=== PATIENT | male | born 1960 | race African-American/Black ===

== ENCOUNTER 2016-09-27 07:38 | Emergency (ER) | payer SELFPAY ==
[2016-09-27] MEDS ORDERED: ALBUTEROL SULFATE 0.083% NEB 2.5 MG/3 ML AMPUL NEB ONE (08:23)
--- NOTE | 2016-09-27 09:00 | ER Document Report ---
HPI - HPI Patient complains to provider of: cough Pain Level: 1 Context: Patient is a 56-year-old male who presents emergency department complaining of cough for 1 week. Patient states that it is been nonproductive, denies any chest pain, dyspnea on exertion. Patient states that his past medical history significant for history of a left pneumothorax 1 that required chest tube placement. He denies having symptoms that were consistent with that. States that he is normally short of breath at baseline so that is not abnormal for him. Patient states he only notices his cough when he takes deep breath. Admits to hot flashes and chills at night. Denies any weight loss nausea, vomiting, abdominal pain, diarrhea or constipation. Denies any other URI symptoms. Denies any history of COPD, asthma Patient does not have a primary care provider Past medical history as above Past surgical history denies Social history significant for current tobacco user, daily alcohol (2-3 beers a day), social marijuana use - CARDIOVASCULAR Cardiovascular: DENIES: Chest pain - DERM Skin Color: Normal Past Medical History - Social History Smoking Status: Current Every Day Smoker Chew tobacco use (# tins/day): - 8 Frequency of alcohol use: Heavy Drug Abuse: Marijuana Family History: Other Patient has suicidal ideation: No Patient has homicidal ideation: No Renal/ Medical History: Denies: Hx Peritoneal Dialysis Surgical Hx: Negative Vertical Provider Document - CONSTITUTIONAL Agree With Documented VS: Yes Exam Limitations: No Limitations General Appearance: WD/WN, No Apparent Distress Notes: PHYSICAL EXAM GENERAL: Alert, interacts well. HEAD: Normocephalic, atraumatic. EYES: Pupils equal, round, and reactive to light. Extraocular movements intact. ENT: Oral mucosa moist, tongue midline. NECK: Full range of motion. Supple. Trachea midline. LUNGS: Clear to auscultation bilaterally, no wheezes, rales, or rhonchi. No respiratory distress. HEART: Regular rate and rhythm. No murmurs, gallops, or rubs. EXTREMITIES: Moves all 4 extremities spontaneously. No edema, radial and dorsalis pedis pulses 2/4 bilaterally. No cyanosis. NEUROLOGICAL: Alert and oriented x4. Normal speech. PSYCH: Normal affect, normal mood. SKIN: Warm, dry, normal turgor. No rashes or lesions noted. - INFECTION CONTROL TRAVEL OUTSIDE OF THE [place] IN LAST 30 DAYS: No Course - Re-evaluation Re-evalutation: 09/27/16 09:00 Patient is a 56-year-old male who is hemodynamically stable, no acute distress and afebrile. X-ray does not reveal any evidence of pneumonia is possible scarring in the right upper lobe. Discussed findings with patient and indications to follow-up with primary care for possible repeat imaging in the future.. Patient states that her cough feels better after 1 dose of nebulized albuterol. Will discharge patient home with inhaler and can follow-up with primary care. - Diagnostic Test Radiology reviewed: Image reviewed, Reports reviewed Discharge - Discharge Clinical Impression: Cough Condition: Good Disposition: HOME, SELF-CARE Instructions: Upper Respiratory Illness ([facility]), Inhaled Bronchodilators ([facility]) Forms: Smoking Cessation Education [facility]: [facility] [NO [facility]AL MD] - Follow up in 1 week
--- NOTE | 2016-09-27 09:23 | RADIOLOGY REPORT (SQ) ---
EXAM DESCRIPTION: CHEST PA/LAT COMPLETED DATE/TIME: 09/27/2016 9:08 am REASON FOR STUDY: cough COMPARISON: 08/12/2012. EXAM PARAMETERS: NUMBER OF VIEWS: two views TECHNIQUE: Digital Frontal and Lateral radiographic views of the chest acquired. RADIATION DOSE: NA LIMITATIONS: none FINDINGS: LUNGS AND PLEURA: Faint density in the right upper lobe unchanged from August 2012. Probab ly mild scarring. No lobar infiltrates, masses or pneumothorax. No pleural effusion. MEDIASTINUM AND HILAR STRUCTURES: No masses or contour abnormalities. HEART AND VASCULAR STRUCTURES: Heart normal size. No evidence for failure. BONES: No acute findings. HARDWARE: None in the chest. OTHER: No other significant finding. IMPRESSION: STABLE APPEARANCE OF THE CHEST. NO ACUTE RADIOGRAPHIC FINDING. TECHNICAL DOCUMENTATION: JOB ID: [id number] [employer]- All Rights Reserved
[2016-09-27] MEDS ORDERED: ALBUTEROL SULFATE HFA (90 MCG/PUFF) 8 GM MDI (1 MDI/ER DISP) IH PRN (09:30)
[2016-09-27 09:45] VITALS: BP 141/99
== END 2016-09-27 09:44 | disposition home or self-care (01) ==
LOC: ER 07:38
DX: R05 Cough (principal); R06.00 Dyspnea, unspecified; F17.210 Nicotine dependence, cigarettes, uncomplicated
CPT/HCPCS: 94640; 99283; 71020; J3490